=== PATIENT | male | born 1930 | race Caucasian/White ===

== ENCOUNTER 2017-06-02 21:32 | Inpatient (IN) ==
[2017-06-02] MEDS ORDERED: Aspirin 81 MG TAB.CHEW PO STA (21:39)
[2017-06-02] MEDS ORDERED: Azithromycin 500 MG in D5% in Water 250 ML IVPB ONE (21:50)
--- NOTE | 2017-06-02 22:03 | Emergency Department Note ---
Disposition Clinical Impression: Cholecystitis, acute, Acute respiratory distress, Severe sepsis Sepsis Qualifiers: Sepsis type: sepsis due to unspecified organism Qualified Code(s): A41.9 - Sepsis, unspecified organism Bilateral pneumonia Qualifiers: Pneumonia type: due to unspecified organism Lung location: lower lobe of lung Qualified Code(s): J18.9 - Pneumonia, unspecified organism Disposition: Admitted As Inpatient Condition: Serious Time of Disposition: 03:16 SOB HPI - General Chief Complaint: ED Shortness of Breath/Dyspnea Stated Complaint: beto Time Seen by Provider: 06/02/17 21:35 Source: patient, EMS Mode of arrival: EMS Limitations: no limitations Nursing Notes Reviewed: Yes Vital Signs Reviewed: Yes - History of Present Illness 86 year old male transferred from [place] urgent care for severe SOA; several day history of worsening shortness of air and fever. Denies any other symptoms including syncope, lightheadedness, vision change, cough, wheeze, chest pain, palpitations, abdominal pain, nausea, or vomiting. Seen in [place] [facility] prior to arrival during which several studies were done including troponin x2 with upward trend (0.02 to 0.075), elevated BNP at 1329, and negative lactate. WBC and CXR had not resulted before transfer to [place]. Nurse informs me that patient meets sepsis criteria. Hx remarkable for history of UTI, CAD, CHF, COPD, and home O2 dependence ( usually on 2L via NC). ROS: has had increasing leg swelling over several days, however, denies focal weakness/sensory loss, diarrhea, dysuria, or urinary frequency. - Related Data Home Medications Medication Instructions Recorded Confirmed Albuterol Neb [Proventil Neb] 2.5 mg IH Q4H 06/02/17 06/02/17 Albuterol Sulfate [Albuterol 2 puff IH Q6H PRN 06/02/17 06/02/17 Inhaler] Alfuzosin HCl [Uroxatral] 10 mg PO DAILY 06/02/17 06/02/17 Allopurinol [Zyloprim 100 MG] 100 mg PO DAILY 06/02/17 06/02/17 Ascorbic Acid [Vitamin C] 500 mg PO DAILY 06/02/17 06/02/17 Atorvastatin Calcium [Lipitor] 20 mg PO HS 06/02/17 06/02/17 Budesonide/Formoterol 160/4.5 2 puff IH BIDR 06/02/17 06/02/17 [Symbicort 160/4.5] Calcium Carbonate/Vitamin D3 1 each PO DAILY 06/02/17 06/02/17 [Calcium 600-Vit D3 200 Tablet] Carvedilol 3.125 mg PO DAILY 06/02/17 06/02/17 Cyanocobalamin (Vitamin B-12) 1,000 mcg PO DAILY 06/02/17 06/02/17 [Vitamin B12] Ergocalciferol (VITAMIN D2) 800 unit PO DAILY 06/02/17 06/02/17 [Vitamin D] Ferrous Sulfate 325 mg PO TID 06/02/17 06/02/17 FluocinoNIDE 0.05% CRM [Lidex] 1 appl TP BID 06/02/17 06/02/17 Furosemide [Lasix] 60 mg PO BID 06/02/17 06/02/17 Gabapentin [Neurontin] 800 mg PO BID 06/02/17 06/02/17 Hydrocortisone 1% CREAM [Cortaid] 1 appl TP BID 06/02/17 06/02/17 Insulin NPH Human Isophane 30 unit SQ QAM 06/02/17 06/02/17 [Novolin N] Insulin NPH Human Isophane 60 unit SQ HS 06/02/17 06/02/17 [Novolin N] Insulin Regular, Human [Novolin R] 30 unit SQ BID 06/02/17 06/02/17 Ipratropium Neb [Atrovent Neb] 0.5 mg IH QID PRN 06/02/17 06/02/17 Lisinopril 2.5 mg PO Q48H 06/02/17 06/02/17 Omeprazole [PriLOSEC] 20 mg PO BIDAC 06/02/17 06/02/17 Petrolatum,White [Aloe [place]] 1 appl TP DAILY 06/02/17 06/02/17 Potassium Chloride [K-Tab ER] 60 meq PO BID 06/02/17 06/02/17 Pyridoxine (B-6) [Vitamin B-6] 50 mg PO DAILY 06/02/17 06/02/17 Sertraline [Zoloft] 75 mg PO QAM 06/02/17 06/02/17 Spironolactone [Aldactone] 12.5 mg PO BID 06/02/17 06/02/17 Tramadol HCl [Ultram] 50 mg PO Q6H 06/02/17 06/02/17 Vitamin E Acid Succinate [Vitamin 400 units PO DAILY 06/02/17 06/02/17 E] Allergies Allergy/AdvReac Type Severity Reaction Status Date / Time No Known Allergies Allergy Verified 06/02/17 21:35 All systems ED: reviewed and negative except as stated. Review of Systems: As Per HPI Constitutional: Reports: fever, chills, weakness. Denies: night sweats Eyes: Denies: vision change Cardiovascular: Reports: dyspnea on exertion, edema. Denies: chest pain, palpitations, syncope Respiratory: Reports: dyspnea. Denies: cough, wheezes, hemoptysis, stridor, sputum production Gastrointestinal: Denies: abdominal pain, nausea, vomiting, diarrhea Genitourinary: Denies: urgency, dysuria, frequency, hematuria Musculoskeletal: Denies: back pain Neurological: Reports: weakness. Denies: headache, numbness, paresthesias, confusion Psychiatric: Denies: anxiety Endocrine: Reports: fatigue Past Medical History - Past Medical History Attestation: Yes The following information was validated with the patient. Source: patient Medical history: Reports: atrial fibrillation, CHF, COPD, coronary artery disease, diabetes, osteoporosis Psychiatric history: Reports: depression - Social History Smoking Status: Former smoker Alcohol use: Reports: none Drug use: Reports: none Physical Exam - General Limitations: no limitations General appearance: alert, in distress - Head Head exam: normocephalic - Eye Eye exam: Present: PERRL, EOMI. Absent: scleral icterus, conjunctival injection - ENT ENT exam: mucous membranes moist - Respiratory Respiratory exam: Present: respiratory distress, accessory muscle use, other ( Positive rales and rhonchi). Absent: wheezes, stridor - Cardiovascular Cardiovascular exam: Present: normal rhythm, tachycardia. Absent: systolic murmur, diastolic murmur, +S3, +S4 - Abdominal Exam Abdominal exam: Present: soft, Non-Tender. Absent: Cruz's sign - Extremities Exam Extremities exam: Present: pedal edema (3+ pitting edema bilaterally symmetrical with ruborous skin change) Course Course Narrative: Patient placed on BIPAP and bus monitor. Ordered CBC, lactate, blood cultures x2, troponin, and CXR. Started on broad spectrum IV antibiotics. Breathing subjectively improved. RN reports to me that patient is SIRS positive due to elevations in RR, HR, and Temp. Half liter NS bolus given. Troponin 0.06. CXR shows possible pneumonia per radiologist interpretation. Patient did also show intra-abdominal lab abnormalities had known as noted from [place] record including elevated bilirubin (2.8) & elevated transaminases (AST 348, ALT 208). ABG drawn. Decision to admit patient for acute CHF exacerbation with . Spoke with hospitalist who requests an abdominal CT with contrast (due to aforementioned concerning lab abnormalities) prior to floor placement; findings consistent with acute cholecystitis per radiology read. Hospitalist accepts patient requesting general surgery be consulted on case. Also requested GI consult be ordered. - Consultations Consultation #1: Spoke with resident traffic control supervisor for general surgery. Will consult secondary to medicine admission due to bipap-dependent respiratory distress. Time: 03:14 Vital Signs Temperature 101.6 F H 06/02/17 21:35 Pulse Rate 100 06/02/17 21:35 Respiratory Rate 28 06/02/17 21:35 Blood Pressure 198/87 06/02/17 21:35 O2 Sat by Pulse Oximetry 95 06/02/17 21:35 Temperature 98.9 F 06/03/17 04:20 Pulse Rate 86 06/03/17 04:20 Respiratory Rate 30 06/03/17 04:45 Blood Pressure 211/97 06/03/17 04:20 O2 Sat by Pulse Oximetry 96 06/03/17 04:45 Oxygen Delivery Oxygen Delivery Bipap Shortness of Breath/Dyspnea - MDM Narrative Medical decision making narrative: Patient in persistent respiratory distress requiring BiPAP. Meet sepsis criteria with radiographic evidence of acute cholecystitis without visualized cholelithiasis. Admitting to medicine for monitoring, treatment of respiratory status, IV antibiotics, G.I. consult, and general surgery consult. Hospitalist traffic control supervisor accepts patient. GI consult ordered and pending. General surgery consulted on case. U/S GB ordered. Single dose of Cipro and Flagyl given at request of hospitalist. Patient currently on BIPAP saturating well. - Lab Data Lab results reviewed: Yes I reviewed the patient's lab results. Lab results narrative: [facility]: BNP 1329, troponin x2 (0.02, 0.075), CK 86, AST 348, a LT 308, total bilirubin 2.8, direct bilirubin 2.4, alk false 154, calcium 8.7, total protein 8.0, sodium 140, potassium 3.5, chloride 96, CO2 36, glucose 88, dealing 14, creatinine 1.02. Laboratory Last Values WBC 10.0 K/mcL (4.3-11.1) 06/03/17 00:24 RBC 3.71 M/mcL (4.19-5.50) L 06/03/17 00:24 Hgb 11.4 g/dL (12.9-16.9) L 06/03/17 00:24 Hct 36.5 % (37.5-50.1) L 06/03/17 00:24 MCV 98.4 fL (83.0-100.0) 06/03/17 00:24 MCH 30.7 pg (28.0-33.3) 06/03/17 00:24 MCHC 31.2 g/dL (31.6-35.5) L 06/03/17 00:24 RDW 14.7 % (11.5-14.5) H 06/03/17 00:24 Plt Count 159 K/mcL (140-400) 06/03/17 00:24 MPV 9.8 fL (9.4-12.4) 06/03/17 00:24 Immature Gran % 0.4 % (0-4) 06/03/17 00:24 Seg Neutrophils % 89.4 % 06/03/17 00:24 Lymphocytes % 3.3 % 06/03/17 00:24 Monocytes % 6.8 % 06/03/17 00:24 Eosinophils % 0.0 % 06/03/17 00:24 Basophils % 0.1 % 06/03/17 00:24 Neutrophils # 9.0 K/mcL (1.6-8.9) H 06/03/17 00:24 Lymphocytes # 0.3 K/mcL (0.6-4.6) L 06/03/17 00:24 Monocytes # 0.7 K/mcL (0.0-1.3) 06/03/17 00:24 Eosinophils # 0.0 K/mcL (0.0-0.6) 06/03/17 00:24 Basophils # 0.0 K/mcL (0.0-0.2) 06/03/17 00:24 Immature Plt Fraction 2.5 % (1.1-6.1) 06/03/17 00:24 ABG pH 7.37 pH Units (7.32-7.45) 06/02/17 23:52 ABG pCO2 61 mmHg (35-45) H 06/02/17 23:52 ABG pO2 89 mmHg (85-104) 06/02/17 23:52 ABG HCO3 35 mEq/L (21-27) H 06/02/17 23:52 ABG Total CO2 37 mEq/L (20-26) H 06/02/17 23:52 ABG O2 Saturation 96 % (95-98) 06/02/17 23:52 ABG Base Excess 8 mEq/L (-2 to 3) H 06/02/17 23:52 Lactic Acid 1.6 mmol/L (0.5-2.2) 06/02/17 22:56 Troponin I 0.06 ng/mL (0-0.03) H* 06/02/17 22:56 B-Natriuretic Peptide 153 pg/mL (0-100) H 06/02/17 22:56 Urine Color Dark Yellow (Yellow) 06/02/17 23:42 Urine Clarity Slightly Hazy (Clear) 06/02/17 23:42 Urine pH 7.5 pH Units (5.0-8.0) 06/02/17 23:42 Ur Specific [place] 1.016 (1.010-1.025) 06/02/17 23:42 Urine Protein 100 mg/dL (Neg-Trace) H 06/02/17 23:42 Urine Glucose (UA) Normal mg/dL (Normal) 06/02/17 23:42 Urine Ketones 15 mg/dL (Negative) H 06/02/17 23:42 Urine Blood Moderate (Negative) H 06/02/17 23:42 Urine Nitrite Negative (Negative) 06/02/17 23:42 Urine Bilirubin Small (Negative) H 06/02/17 23:42 Urine Urobilinogen 2.0 mg/dL (Normal) H 06/02/17 23:42 Ur Leukocyte Esterase Trace (Negative) H 06/02/17 23:42 Urine Microscopic RBC 15-30 per hpf (0-3) H 06/02/17 23:42 Urine Microscopic WBC 0-3 per hpf (0-3) 06/02/17 23:42 Ur Squamous Epith Cells Many per lpf (None-Few) H 06/02/17 23:42 Urine Bacteria Few per hpf (None-Few) 06/02/17 23:42 Hyaline Casts None Seen per lpf (None-Few) 06/02/17 23:42 Ur Culture Indicated? YES (NO) A 06/02/17 23:42 Result diagrams: 06/03/17 00:24 Lab Results 06/02/17 06/02/17 06/02/17 Range/Units 22:56 22:56 22:56 WBC (4.3-11.1) K/mcL RBC (4.19-5.50) M/mcL Hgb (12.9-16.9) g/dL Hct (37.5-50.1) % MCV (83.0-100.0) fL MCH (28.0-33.3) pg MCHC (31.6-35.5) g/dL RDW (11.5-14.5) % Plt Count (140-400) K/mcL MPV (9.4-12.4) fL Immature Gran % (0-4) % Seg Neutrophils % % Lymphocytes % % Monocytes % % Eosinophils % % Basophils % % Neutrophils # (1.6-8.9) K/mcL Lymphocytes # (0.6-4.6) K/mcL Monocytes # (0.0-1.3) K/mcL Eosinophils # (0.0-0.6) K/mcL Basophils # (0.0-0.2) K/mcL Immature Plt Fraction (1.1-6.1) % ABG pH (7.32-7.45) pH Units ABG pCO2 (35-45) mmHg ABG pO2 (85-104) mmHg ABG HCO3 (21-27) mEq/L ABG Total CO2 (20-26) mEq/L ABG O2 Saturation (95-98) % ABG Base Excess (-2 to 3) mEq/L Lactic Acid 1.6 (0.5-2.2) mmol/L Troponin I 0.06 H* (0-0.03) ng/mL B-Natriuretic Peptide 153 H (0-100) pg/mL Urine Color (Yellow) Urine Clarity (Clear) Urine pH (5.0-8.0) pH Units Ur Specific [place] (1.010-1.025) Urine Protein (Neg-Trace) mg/dL Urine Glucose (UA) (Normal) mg/dL Urine Ketones (Negative) mg/dL Urine Blood (Negative) Urine Nitrite (Negative) Urine Bilirubin (Negative) Urine Urobilinogen (Normal) mg/dL Ur Leukocyte Esterase (Negative) Urine Microscopic RBC (0-3) per hpf Urine Microscopic WBC (0-3) per hpf Ur Squamous Epith Cells (None-Few) per lpf Urine Bacteria (None-Few) per hpf Hyaline Casts (None-Few) per lpf Ur Culture Indicated? (NO) 06/02/17 06/02/17 06/03/17 Range/Units 23:42 23:52 00:24 WBC 10.0 (4.3-11.1) K/mcL RBC 3.71 L (4.19-5.50) M/mcL Hgb 11.4 L (12.9-16.9) g/dL Hct 36.5 L (37.5-50.1) % MCV 98.4 (83.0-100.0) fL MCH 30.7 (28.0-33.3) pg MCHC 31.2 L (31.6-35.5) g/dL RDW 14.7 H (11.5-14.5) % Plt Count 159 (140-400) K/mcL MPV 9.8 (9.4-12.4) fL Immature Gran % 0.4 (0-4) % Seg Neutrophils % 89.4 % Lymphocytes % 3.3 % Monocytes % 6.8 % Eosinophils % 0.0 % Basophils % 0.1 % Neutrophils # 9.0 H (1.6-8.9) K/mcL Lymphocytes # 0.3 L (0.6-4.6) K/mcL Monocytes # 0.7 (0.0-1.3) K/mcL Eosinophils # 0.0 (0.0-0.6) K/mcL Basophils # 0.0 (0.0-0.2) K/mcL Immature Plt Fraction 2.5 (1.1-6.1) % ABG pH 7.37 (7.32-7.45) pH Units ABG pCO2 61 H (35-45) mmHg ABG pO2 89 (85-104) mmHg ABG HCO3 35 H (21-27) mEq/L ABG Total CO2 37 H (20-26) mEq/L ABG O2 Saturation 96 (95-98) % ABG Base Excess 8 H (-2 to 3) mEq/L Lactic Acid (0.5-2.2) mmol/L Troponin I (0-0.03) ng/mL B-Natriuretic Peptide (0-100) pg/mL Urine Color Dark Yellow (Yellow) Urine Clarity Slightly Hazy (Clear) Urine pH 7.5 (5.0-8.0) pH Units Ur Specific [place] 1.016 (1.010-1.025) Urine Protein 100 H (Neg-Trace) mg/dL Urine Glucose (UA) Normal (Normal) mg/dL Urine Ketones 15 H (Negative) mg/dL Urine Blood Moderate H (Negative) Urine Nitrite Negative (Negative) Urine Bilirubin Small H (Negative) Urine Urobilinogen 2.0 H (Normal) mg/dL Ur Leukocyte Esterase Trace H (Negative) Urine Microscopic RBC 15-30 H (0-3) per hpf Urine Microscopic WBC 0-3 (0-3) per hpf Ur Squamous Epith Cells Many H (None-Few) per lpf Urine Bacteria Few (None-Few) per hpf Hyaline Casts None Seen (None-Few) per lpf Ur Culture Indicated? YES A (NO) - Radiology Data Radiology results reviewed: Yes I reviewed the patient's radiology results. Chest X-Ray 06/02/17 21:36 IMPRESSION: Stable mild cardiomegaly. Mild bibasilar airspace disease may represent pneumonia and/or atelectasis. D/ / Sunday Pulido MD / Sunday Pulido MD Interpreting Provider: Sunday Pulido MD Abdomen/Pelvis CT 06/03/17 01:03 IMPRESSION: Gallbladder wall thickening with pericholecystic fat stranding suspicious for mild acute cholecystitis. There are no calcified gallstones. Correlation with gallbladder ultrasound may be helpful. Right greater than left bibasilar airspace disease most consistent with pneumonia. Atelectasis may be contributory. 2.1 cm right adrenal gland nodule, likely an adenoma. Soft tissue nodules with foci of calcification posterior to the sacrococcygeal junction. These may be reactive and pressure related. Clinical correlation is recommended. D/ / Sunday Pulido MD / Sunday Pulido MD Interpreting Provider: Sunday Pulido MD - EKG Data EKG attestation: Yes I reviewed and interpreted this EKG. EKG results narrative: Rate 94, P-waves indiscernable, TX interval indeterminate, QRS duration 186, QTC 466, R axis -69, RBBB, no acutely appreciable ST changes Critical Care Time Critical Care Time: Yes Total Critical Care Time: 40 Attestation: Critical care performed: Time is exclusive of separately billable procedures. Time includes: direct patient care, patient reassessment, coordination of patient care, interpretation of data (laboratory data, radiology data, and respiratory data), review of patient's medical records, medical consultation and documentation of patient care. Procedures included in critical care time: Procedures excluded from critical care time: Attestation Statement - Attestation Attestation: I, [place] MD, personally evaluated this patient and discussed their management with the resident physician. I reviewed the resident's note and agree with the documented findings, medical decision making, and plan of care. 86-year-old [facility] complaint of cough and shortness of breath and fever. Patient evaluated at the [place] and found to have an elevated troponin. He denies chest pain. He states he has just had increasing shortness of breath for the past 4 or 5 days. Some cough with clear sputum occasionally. Some chills and fever. He does use home oxygen. On examination patient is a well-developed obese elderly male in mild respiratory distress. He is alert. There is no cyanosis or diaphoresis. Breath sounds are decreased bilaterally with some bibasilar rales. No wheezes noted. Heart regular rate and rhythm. Abdomen soft and nontender with normal bowel sounds. There is 2-3+ pitting edema of the lower extremities bilaterally. Patient placed on BiPAP. Labs reviewed. Troponin 0.06 here. Chest x-ray shows stable mild cardiomegaly. Mild bibasilar airspace disease may represent pneumonia and/or atelectasis. The hospitalist, Dr. Phoenix, was consulted and requested a CT of the abdomen and pelvis prior to accepting patient for admission. We will call him back with the results. CT showed gallbladder wall thickening with pericholecystic fat stranding suspicious for mild acute cholecystitis. There are no calcified gallstones. Right greater than left bibasilar airspace disease most consistent with pneumonia.
[2017-06-02] MEDS ORDERED: 0.9 % Sodium Chloride 500 ML IVC ONE (23:26)
[2017-06-02 23:57] LABS: ABG Base Excess 8 mEq/L (-2 to 3); ABG HCO3 35 mEq/L (21-27); ABG Oxygen Saturation 96 % (95-98); ABG PCO2 61 mmHg (35-45); ABG PH 7.37 pH Units (7.32-7.45); ABG PO2 89 mmHg (85-104); ABG TCO2 37 mEq/L (20-26)
[2017-06-03 00:04] LABS: Bilirubin,Urine Small (Negative); Blood,Urine Moderate (Negative); Color,Urine Dark Yellow (Yellow); Glucose,Urine (UA) Normal (Normal); Ketones,Urine 15 mg/dL (Negative); Leukocyte Esterase,Urine Trace (Negative); Nitrite,Urine Negative (Negative); PH,Urine 7.5 pH Units (5.0-8.0); Protein,Urine 100 mg/dL (Neg-Trace); Specific Gravity,Urine 1.016 (1.010-1.025)
[2017-06-03 00:06] LABS: Hyaline Casts,Urine None Seen per lpf (None-Few); Squamous Epithelial Cell,Urine Many per lpf (None-Few); WBC,Urine 0-3 per hpf (0-3)
[2017-06-03 00:09] LABS: Clarity,Urine Slightly Hazy (Clear)
[2017-06-03 00:22] LABS: Bacteria,Urine Few per hpf (None-Few); RBC,Urine 15-30 per hpf (0-3)
[2017-06-03 00:32] LABS: Basophils % 0.1 %; Hematocrit 36.5 % (37.5-50.1); Hemoglobin 11.4 g/dL (12.9-16.9); Immature Granulocytes % 0.4 % (0-4); Immature Platelets 2.5 % (1.1-6.1); Lymphocytes # 0.3 K/mcL (0.6-4.6); Lymphocytes % 3.3 %; Mean Corpuscular HGB Conc 31.2 g/dL (31.6-35.5); Mean Corpuscular Hemoglobin 30.7 pg (28.0-33.3); Mean Corpuscular Volume 98.4 fL (83.0-100.0); Mean Platelet Volume 9.8 fL (9.4-12.4); Monocytes # 0.7 K/mcL (0.0-1.3); Monocytes % 6.8 %; Platelet Count 159 K/mcL (140-400); Red Blood Count 3.71 M/mcL (4.19-5.50); Red Cell Distribution Width 14.7 % (11.5-14.5); Segmented Neutrophils % 89.4 %
[2017-06-03] MEDS ORDERED: Ipratropium/Albuterol Neb 3 ML IH ONE (01:41)
[2017-06-03] MEDS ORDERED: MetroNIDAZOLE 500 MG/100 ML 500 MG/100 ML BAG IVPB ONE (03:23)
[2017-06-03] MEDS ORDERED: *HR* Labetalol 20 MG/4 ML SYRINGE IVP PRN (06:27)
[2017-06-03 09:12] LABS: Albumin 3.2 g/dL (3.5-5.0); Albumin/Globulin Ratio 0.8 (1.1-2.2); Bilirubin,Direct 3.5 mg/dL (0.0-0.5); Bilirubin,Indirect 0.9 mg/dL (0.0-1.2); Bilirubin,Total 4.4 mg/dL (0.2-1.2); Total Protein 7.2 g/dL (6.0-8.3)
--- NOTE | 2017-06-03 11:14 | Internal Med History&Physical ---
Date of Encounter: 06/03/17 Time of Encounter: 11:02 Assessment and Plan (1) Acute exacerbation of congestive heart failure Current visit: Yes Status: Acute IV Lasix. Echocardiogram. Strict I's and O's. Daily weights. Echocardiogram from July 2016 reviewed in the medical records with ejection fraction of 55% and diastolic dysfunction. Qualifiers: Congestive heart failure type: systolic Qualified Code(s): I50.23 - Acute on chronic systolic (congestive) heart failure (2) Sepsis Current visit: Yes Status: Acute Likely source pneumonia. We will treat him with Zosyn and Levaquin possible there is also suggestion of cholecystitis. Follow-up blood cultures, temperature curve, WBC trend. I will avoid 30 a mile per KG fluid resuscitation due to acute heart failure and fluid overload. Qualifiers: Sepsis type: sepsis due to unspecified organism Qualified Code(s): A41.9 - Sepsis, unspecified organism (3) Cholecystitis, acute Current visit: Yes Status: Acute Gallbladder ultrasound. General surgery consult. (4) Acute respiratory distress Current visit: Yes Status: Acute Secondary to fluid overload, pneumonia superimposed with chronic lung disease We will treat with Lasix, BiPAP. We will treat pneumonia with IV antibiotics. Inhaled bronchodilators. (5) Bilateral pneumonia Current visit: Yes Status: Acute Zosyn and Levaquin. Follow-up blood cultures and sensitivity. Obtain sputum culture if available. Qualifiers: Pneumonia type: due to unspecified organism Lung location: lower lobe of lung Qualified Code(s): J18.9 - Pneumonia, unspecified organism (6) Coronary artery disease Current visit: Yes Status: Acute Continue with Coreg and Lipitor. Qualifiers: Coronary Disease-Associated Artery/Lesion type: picayune artery [place] vs. transplanted heart: picayune heart Associated angina: without angina Qualified Code(s): I25.10 - Atherosclerotic heart disease of picayune coronary artery without angina pectoris (7) Type 2 diabetes mellitus Current visit: Yes Status: Acute Insulin sliding scale and Levemir basal coverage. Qualifiers: Diabetes mellitus complication status: without complication Diabetes mellitus halfway insulin use: with long term care pharmacist use Qualified Code(s): E11.9 - Type 2 diabetes mellitus without complications; Z79.4 - halfway (current) use of insulin; Z79.4 - long term care pharmacist (current) use of insulin; Z79.4 - halfway ( current) use of insulin; Z79.4 - halfway (current) use of insulin Internal Medicine - H&P: HPI Chief complaint: Shortness of breath Admitted From: Emergency Dept Plans for Post Hospital Care: Home History of present illness: Mr. Lagos is a 86 year old male with multiple medical comorbidities who presented to the hospital due to shortness of breath. He is a very poor historian. He initially presented at the [facility] where his workup showed elevated BNP and mildly elevated troponin and he was transferred to our facility. He reports moderate distress severe shortness of breath worsening over the last 2 days, denies chest pain cough and fever. He was found to have increased work of breathing in the emergency department and he was placed on BiPAP. Review of systems positive for chronic lower extremity swelling, chronic hip pain, knee pain, shortness of breath. Family history was reviewed and found to be noncontributory due to the patient' s advanced age. Past Med Surg Social Fam HX - Past Medical History Medical history: atrial fibrillation, CHF, COPD, coronary artery disease, diabetes, osteoporosis Psychiatric history: depression - Social History Smoking Status: Former smoker Smokeless Tobacco Status: No Alcohol use: none Drug use: none Internal Medicine - H&P: Meds Albuterol Neb [Proventil Neb] 2.5 mg IH Q4H 06/02/17 [History] Albuterol Sulfate [Albuterol Inhaler] 2 puff IH Q6H PRN 06/02/17 [History] Alfuzosin HCl [Uroxatral] 10 mg PO DAILY 06/02/17 [History] Allopurinol [Zyloprim 100 MG] 100 mg PO DAILY 06/02/17 [History] Ascorbic Acid [Vitamin C] 500 mg PO DAILY 06/02/17 [History] Atorvastatin Calcium [Lipitor] 20 mg PO HS 06/02/17 [History] Budesonide/Formoterol 160/4.5 [Symbicort 160/4.5] 2 puff IH BIDR 06/02/17 [ History] Calcium Carbonate/Vitamin D3 [Calcium 600-Vit D3 200 Tablet] 1 each PO DAILY [History] Carvedilol 3.125 mg PO DAILY 06/02/17 [History] Cyanocobalamin (Vitamin B-12) [Vitamin B12] 1,000 mcg PO DAILY 06/02/17 [History ] Ergocalciferol (VITAMIN D2) [Vitamin D] 800 unit PO DAILY 06/02/17 [History] Ferrous Sulfate 325 mg PO TID 06/02/17 [History] FluocinoNIDE 0.05% CRM [Lidex] 1 appl TP BID 06/02/17 [History] Furosemide [Lasix] 60 mg PO BID 06/02/17 [History] Gabapentin [Neurontin] 800 mg PO BID 06/02/17 [History] Hydrocortisone 1% CREAM [Cortaid] 1 appl TP BID 06/02/17 [History] Insulin NPH Human Isophane [Novolin N] 30 unit SQ QAM 06/02/17 [History] Insulin NPH Human Isophane [Novolin N] 60 unit SQ HS 06/02/17 [History] Insulin Regular, Human [Novolin R] 30 unit SQ BID 06/02/17 [History] Ipratropium Neb [Atrovent Neb] 0.5 mg IH QID PRN 06/02/17 [History] Lisinopril 2.5 mg PO Q48H 06/02/17 [History] Omeprazole [PriLOSEC] 20 mg PO BIDAC 06/02/17 [History] Petrolatum,White [Aloe [place]] 1 appl TP DAILY 06/02/17 [History] Potassium Chloride [K-Tab ER] 60 meq PO BID 06/02/17 [History] Pyridoxine (B-6) [Vitamin B-6] 50 mg PO DAILY 06/02/17 [History] Sertraline [Zoloft] 75 mg PO QAM 06/02/17 [History] Spironolactone [Aldactone] 12.5 mg PO BID 06/02/17 [History] Tramadol HCl [Ultram] 50 mg PO Q6H 06/02/17 [History] Vitamin E Acid Succinate [Vitamin E] 400 units PO DAILY 06/02/17 [History] 3 Allergy/AdvReac Type Severity Reaction Status Date / Time No Known Allergies Allergy Verified 06/02/17 21:35 All Systems PM: A 10-system review of systems was performed and is negative for pertinent findings except as documented above in the HPI. - Constitutional Vitals: Temp Pulse Resp BP Pulse Ox 98.6 F 97 27 173/72 96 06/03/17 07:30 06/03/17 07:30 06/03/17 07:30 06/03/17 07:30 06/03/17 04:45 General appearance: Present: A&O X 3, morbidly obese, no acute distress - Eye Eye exam: Present: PERRL, conjuntiva pink, sclera anicteric Pupils: Present: PERRL - Respiratory Respiratory exam: Present: decreased breath sounds (Decreased breath sounds bases), CTAB. Absent: accessory muscle use, rales, rhonchi, wheezes - Cardiovascular Cardiovascular exam: Present: RRR, +S1, +S2. Absent: diastolic murmur, gallop, rubs, systolic murmur Additional comments: Post sternotomy scar - GI/Abdominal GI/Abdominal exam: Present: normal bowel sounds, soft, no peritoneal signs. Absent: distended, tenderness - Extremities Exam Extremities exam: Present: pedal edema, warm, radial pulses palpable and symmetrical. Absent: calf tenderness, cyanotic - Skin Skin exam: Present: abrasion (Superficial skin abrasions on both shins) Internal Med - H&P Results - Labs CBC & Chem 7: 06/03/17 00:24 Labs: Liver Function 06/03/17 Range/Units 07:50 Total Bilirubin 4.4 H (0.2-1.2) mg/dL Direct Bilirubin 3.5 H (0.0-0.5) mg/dL AST 195 H (5-34) Units/L ALT 216 H (0-55) Units/L Alkaline Phosphatase 144 H (38-126) Units/L Albumin 3.2 L (3.5-5.0) g/dL
[2017-06-03] MEDS ORDERED: Acetaminophen 325 MG TABLET PO PRN (11:34)
[2017-06-03] MEDS ORDERED: Ondansetron 4 MG/2 ML VIAL IVP PRN (11:34)
[2017-06-03] MEDS ORDERED: *HR* Morphine 2 MG/ML SYRINGE IVP PRN (11:34)
[2017-06-03] MEDS ORDERED: *HR* HYDROcodone/Acet 5/325 mg TABLET PO PRN (11:34)
[2017-06-03] MEDS ORDERED: Naloxone 0.4 MG/ML INJ IVP PRN (11:34)
[2017-06-03 11:40] LABS: BUN/Creatinine Ratio 16 (6-26); Blood Urea Nitrogen 14 mg/dL (8-26); Carbon Dioxide 33 mEq/L (19-29); Chloride 97 mEq/L (98-109); Glucose 161 mg/dL (70-99); Osmolality,Calculated 294 (280-300); Potassium 3.6 mEq/L (3.5-4.5); Sodium 140 mEq/L (136-145); eGFR For African Americans > 60 (> 60); eGFR For Non-African Americans > 60 (> 60)
[2017-06-03] MEDS: Furosemide 40 MG/4 ML VIAL IVP SCH ×2 (13:02→22:33)
[2017-06-03] MEDS: traMADol 50 MG TABLET PO SCH ×3 (13:02→22:36)
[2017-06-03] MEDS: Piperacillin/Tazobactam 3.375 GM in D5% in Water (Mini-Bag+) 100 ML IVPB SCH (15:37)
[2017-06-03] MEDS: Ipratropium/Albuterol Neb 3 ML IH SCH ×4 (16:16→22:55)
--- NOTE | 2017-06-03 17:28 | General Surgery Consult Note ---
Date of Encounter: 06/03/17 Time of Encounter: 17:00 History of Present Illness Consult date: 06/03/17 Requesting physician: Chemo Mederos History of present illness: 86-year-old referred for surgical evaluation for possible acute cholecystitis. The patient transferred to [facility], 06/02/17, from the [facility] for further evaluation severe shortness of air and difficulty breathing. Evaluation was notable for several findings including upward trending troponin, elevated BNP and CT demonstrating diffuse thickening of the gallbladder wall with possible mild pericholecystic fluid. These findings were suggestive of acute cholecystitis prompting the surgical referral. No gallstones were evident. On subsequent USGB, only mild gallbladder wall thickening measuring up to 6 mm as described. No pericholecystic fluid or cholelithiasis was identified. The sonographic Cruz sign was negative. 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 It appears that he may have superimposed pneumonia on chronic lung disease. Labs notable for normal leukocytosis at 10.0; elevated neutrophilia at 9%. Hemoglobin 11.4, hematocrit 35.7, platelet count 159,000. Blood gases notable for significant CO2 retention - pH 7.37, PCO2 61, PO2 89 , bicarbonate 35, base excess 8, O2 saturation 96% Electrolytes, BUN, creatinine or within normal limits; lactic acid 1.6 Total bilirubin 4.4 with a direct component 3.5; AST 135, ALT 216, alkaline phosphatase 144 CT and US reviewed Impression: No evidence acute cholecystitis The abnormal LFTs suggestive CHF/right heart failure causing significant hepatic congestion. Should consider hepatitis as a potential cause for the current findings. The patient remains in significant respiratory distress; if surgery were to be considered, high likelihood that patient will remain intubated an require prolonged mechanical ventilation Findings and impressions discussed with Dr Mederos Past Med Surg Social Fam HX - Past Medical History Medical history: atrial fibrillation, CHF, COPD, coronary artery disease, diabetes, osteoporosis Psychiatric history: depression - Social History Smoking Status: Former smoker Smokeless Tobacco Status: No Alcohol use: none Drug use: none Medications and Allergies Albuterol Neb [Proventil Neb] 2.5 mg IH Q4H 06/02/17 [History] Albuterol Sulfate [Albuterol Inhaler] 2 puff IH Q6H PRN 06/02/17 [History] Alfuzosin HCl [Uroxatral] 10 mg PO DAILY 06/02/17 [History] Allopurinol [Zyloprim 100 MG] 100 mg PO DAILY 06/02/17 [History] Ascorbic Acid [Vitamin C] 500 mg PO DAILY 06/02/17 [History] Atorvastatin Calcium [Lipitor] 20 mg PO HS 06/02/17 [History] Budesonide/Formoterol 160/4.5 [Symbicort 160/4.5] 2 puff IH BIDR 06/02/17 [ History] Calcium Carbonate/Vitamin D3 [Calcium 600-Vit D3 200 Tablet] 1 each PO DAILY [History] Carvedilol 3.125 mg PO DAILY 06/02/17 [History] Cyanocobalamin (Vitamin B-12) [Vitamin B12] 1,000 mcg PO DAILY 06/02/17 [History ] Ergocalciferol (VITAMIN D2) [Vitamin D] 800 unit PO DAILY 06/02/17 [History] Ferrous Sulfate 325 mg PO TID 06/02/17 [History] FluocinoNIDE 0.05% CRM [Lidex] 1 appl TP BID 06/02/17 [History] Furosemide [Lasix] 60 mg PO BID 06/02/17 [History] Gabapentin [Neurontin] 800 mg PO BID 06/02/17 [History] Hydrocortisone 1% CREAM [Cortaid] 1 appl TP BID 06/02/17 [History] Insulin NPH Human Isophane [Novolin N] 30 unit SQ QAM 06/02/17 [History] Insulin NPH Human Isophane [Novolin N] 60 unit SQ HS 06/02/17 [History] Insulin Regular, Human [Novolin R] 30 unit SQ BID 06/02/17 [History] Ipratropium Neb [Atrovent Neb] 0.5 mg IH QID PRN 06/02/17 [History] Lisinopril 2.5 mg PO Q48H 06/02/17 [History] Omeprazole [PriLOSEC] 20 mg PO BIDAC 06/02/17 [History] Petrolatum,White [Aloe [place]] 1 appl TP DAILY 06/02/17 [History] Potassium Chloride [K-Tab ER] 60 meq PO BID 06/02/17 [History] Pyridoxine (B-6) [Vitamin B-6] 50 mg PO DAILY 06/02/17 [History] Sertraline [Zoloft] 75 mg PO QAM 06/02/17 [History] Spironolactone [Aldactone] 12.5 mg PO BID 06/02/17 [History] Tramadol HCl [Ultram] 50 mg PO Q6H 06/02/17 [History] Vitamin E Acid Succinate [Vitamin E] 400 units PO DAILY 06/02/17 [History] 3 Allergy/AdvReac Type Severity Reaction Status Date / Time No Known Allergies Allergy Verified 06/02/17 21:35 Review of Systems All systems PM: A 10-system review of systems was performed and is negative for pertinent findings except as documented above in the HPI. General Surgery Exam Initial Vital Signs Temp Pulse Resp BP Pulse Ox 101.6 F H 100 28 198/87 95 06/02/17 21:35 06/02/17 21:35 06/02/17 21:35 06/02/17 21:35 06/02/17 21:35 Exam Initial Vital Signs Temp Pulse Resp BP Pulse Ox 101.6 F H 100 28 198/87 95 06/02/17 21:35 06/02/17 21:35 06/02/17 21:35 06/02/17 21:35 06/02/17 21:35 Results - Labs 06/03/17 00:24 06/03/17 07:50 Abnormal lab results RBC 3.71 M/mcL (4.19-5.50) L 06/03/17 00:24 Hgb 11.4 g/dL (12.9-16.9) L 06/03/17 00:24 Hct 36.5 % (37.5-50.1) L 06/03/17 00:24 MCHC 31.2 g/dL (31.6-35.5) L 06/03/17 00:24 RDW 14.7 % (11.5-14.5) H 06/03/17 00:24 Neutrophils # 9.0 K/mcL (1.6-8.9) H 06/03/17 00:24 Lymphocytes # 0.3 K/mcL (0.6-4.6) L 06/03/17 00:24 ABG pCO2 61 mmHg (35-45) H 06/02/17 23:52 ABG HCO3 35 mEq/L (21-27) H 06/02/17 23:52 ABG Total CO2 37 mEq/L (20-26) H 06/02/17 23:52 ABG Base Excess 8 mEq/L (-2 to 3) H 06/02/17 23:52 Chloride 97 mEq/L (98-109) L 06/03/17 07:50 Carbon Dioxide 33 mEq/L (19-29) H 06/03/17 07:50 Glucose 161 mg/dL (70-99) H 06/03/17 07:50 POC Glucose 138 (58-89) H 06/03/17 05:08 Total Bilirubin 4.4 mg/dL (0.2-1.2) H 06/03/17 07:50 Direct Bilirubin 3.5 mg/dL (0.0-0.5) H 06/03/17 07:50 AST 195 Units/L (5-34) H 06/03/17 07:50 ALT 216 Units/L (0-55) H 06/03/17 07:50 Alkaline Phosphatase 144 Units/L (38-126) H 06/03/17 07:50 Troponin I 0.07 ng/mL (0-0.03) H* 06/03/17 11:28 B-Natriuretic Peptide 153 pg/mL (0-100) H 06/02/17 22:56 Albumin 3.2 g/dL (3.5-5.0) L 06/03/17 07:50 Globulin 4.0 g/dL (2.4-3.5) H 06/03/17 07:50 Albumin/Globulin Ratio 0.8 (1.1-2.2) L 06/03/17 07:50 Urine Protein 100 mg/dL (Neg-Trace) H 06/02/17 23:42 Urine Ketones 15 mg/dL (Negative) H 06/02/17 23:42 Urine Blood Moderate (Negative) H 06/02/17 23:42 Urine Bilirubin Small (Negative) H 06/02/17 23:42 Urine Urobilinogen 2.0 mg/dL (Normal) H 06/02/17 23:42 Ur Leukocyte Esterase Trace (Negative) H 06/02/17 23:42 Urine Microscopic RBC 15-30 per hpf (0-3) H 06/02/17 23:42 Ur Squamous Epith Cells Many per lpf (None-Few) H 06/02/17 23:42 Ur Culture Indicated? YES (NO) A 06/02/17 23:42 All other labs normal. Consult Discharge Plan - Plan [facility]: [facility] [Primary Care Provider] -
[2017-06-03] MEDS: *HR* Heparin 5,000 UNIT/ML VIAL SQ SCH (17:49)
[2017-06-03] MEDS ORDERED: D5% in Water 1,000 ML IVC PRN (17:54)
[2017-06-03] MEDS ORDERED: *HR* Dextrose 50 % in Water (Syg) 50 ML SYRINGE IVP PRN (17:54)
[2017-06-03] MEDS ORDERED: Dextrose Gel 15 GM PO PRN ×2 (17:54)
[2017-06-03] MEDS: Insulin LISPRO 300 UNITS/3 ML VIAL SQ SCH ×2 (18:23→22:38)
[2017-06-03] MEDS: Budesonide/Formoterol 160/4.5 MDI IH SCH (20:37)
[2017-06-03] MEDS: Gabapentin 400 MG CAPSULE PO SCH (22:36)
[2017-06-03] MEDS: Insulin DETEMIR 100 UNIT/ML X5UNITS SQ SCH (22:37)
[2017-06-04] MEDS: Piperacillin/Tazobactam 3.375 GM in D5% in Water (Mini-Bag+) 100 ML IVPB SCH ×4 (00:40→23:12)
[2017-06-04] MEDS: Ipratropium/Albuterol Neb 3 ML IH SCH ×6 (03:55→23:22)
[2017-06-04 05:34] LABS: Basophils % 0.4 %; Eosinophils # 0.2 K/mcL (0.0-0.6); Eosinophils % 2.5 %; Hemoglobin 11.8 g/dL (12.9-16.9); Immature Granulocytes % 0.3 % (0-4); Lymphocytes # 0.5 K/mcL (0.6-4.6); Lymphocytes % 7.2 %; Mean Corpuscular HGB Conc 31.1 g/dL (31.6-35.5); Mean Corpuscular Volume 96.7 fL (83.0-100.0); Mean Platelet Volume 10.3 fL (9.4-12.4); Monocytes # 0.9 K/mcL (0.0-1.3); Monocytes % 11.5 %; Neutrophils # 5.9 K/mcL (1.6-8.9); Platelet Count 145 K/mcL (140-400); Red Blood Count 3.93 M/mcL (4.19-5.50); Red Cell Distribution Width 14.6 % (11.5-14.5); Segmented Neutrophils % 78.1 %
[2017-06-04 05:46] LABS: Alanine Aminotransferase 164 Units/L (0-55); Albumin/Globulin Ratio 0.8 (1.1-2.2); Alkaline Phosphatase 128 Units/L (38-126); Aspartate Amino Transferase 119 Units/L (5-34); BUN/Creatinine Ratio 19 (6-26); Bilirubin,Total 2.6 mg/dL (0.2-1.2); Blood Urea Nitrogen 16 mg/dL (8-26); Calcium 8.7 mg/dL (8.6-10.8); Carbon Dioxide 37 mEq/L (19-29); Chloride 96 mEq/L (98-109); Globulin 3.9 g/dL (2.4-3.5); Glucose 132 mg/dL (70-99); Osmolality,Calculated 299 (280-300); Potassium 2.9 mEq/L (3.5-4.5); Sodium 143 mEq/L (136-145); Total Protein 6.9 g/dL (6.0-8.3); eGFR For African Americans > 60 (> 60); eGFR For Non-African Americans > 60 (> 60)
[2017-06-04] MEDS: *HR* Heparin 5,000 UNIT/ML VIAL SQ SCH ×2 (06:13→17:14)
[2017-06-04] MEDS: traMADol 50 MG TABLET PO SCH ×4 (06:13→23:11)
[2017-06-04] MEDS: Insulin DETEMIR 100 UNIT/ML X5UNITS SQ SCH ×2 (09:30→21:43)
[2017-06-04] MEDS: Levofloxacin 750 MG/150 ML 750 MG/150 ML BAG IVPB SCH (09:57)
[2017-06-04] MEDS: Furosemide 40 MG/4 ML VIAL IVP SCH ×2 (09:57→21:43)
[2017-06-04] MEDS: Gabapentin 400 MG CAPSULE PO SCH ×2 (09:58→21:43)
[2017-06-04] MEDS: Insulin LISPRO 300 UNITS/3 ML VIAL SQ SCH ×7 (10:03→21:44)
[2017-06-04] MEDS: Budesonide/Formoterol 160/4.5 MDI IH SCH ×2 (10:17→20:50)
--- NOTE | 2017-06-04 12:00 | Electrocardiograph Report ---
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
[2017-06-04] MEDS ORDERED: Perflutren Lipid Microsphere 1.3 ML in 0.9 % Sodium Chloride 8.7 ML IVP ONE (12:42)
--- NOTE | 2017-06-04 14:49 | Internal Med Progress Note ---
Date of Encounter: 06/04/17 Time of Encounter: 14:47 - Assessment and plan (1) Acute exacerbation of congestive heart failure Current Visit: Yes Status: Acute Assessment and plan: Continue Lasix 60 mg IV twice a day, strict I's and O's, daily weights. Is currently -2790 mL since admission. Qualifiers: Congestive heart failure type: systolic Qualified Code(s): I50.23 - Acute on chronic systolic (congestive) heart failure (2) Sepsis Current Visit: Yes Status: Acute Assessment and plan: Zosyn and Levaquin Qualifiers: Sepsis type: sepsis due to unspecified organism Qualified Code(s): A41.9 - Sepsis, unspecified organism (3) Coronary artery disease Current Visit: Yes Status: Acute Qualifiers: Coronary Disease-Associated Artery/Lesion type: [place] artery [place] vs. transplanted heart: [place] heart Associated angina: without angina Qualified Code(s): I25.10 - Atherosclerotic heart disease of [place] coronary artery without angina pectoris (4) Thickening of wall of gallbladder Current Visit: Yes Status: Acute Assessment and plan: Though thickening of GBW, was determined to not be acute cholecystitis. Suggests that pneumonia most likely source of sepsis. We will gear treatment more towards pneumonia at this point. (5) Type 2 diabetes mellitus Current Visit: Yes Status: Acute Assessment and plan: Levemir sliding scale. 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 - Subjective Interval history: Patient denies any dyspnea at this point. He denies CP, N/V, abdominal pain, diarrhea, fevers/chills. He complains of left leg weakness and "giving out". - Constitutional Vitals: Temp Pulse Resp BP Pulse Ox 98.3 F 67 18 100/57 92 06/04/17 11:31 06/04/17 11:31 06/04/17 11:31 06/04/17 11:31 06/04/17 11:31 General appearance: Present: A&O X 3, morbidly obese, no acute distress Exam: - Eye Eye exam: Present: PERRL, conjuntiva pink, sclera anicteric Pupils: Present: PERRL - Respiratory Respiratory exam: Present: decreased breath sounds (Decreased breath sounds bases), CTAB. Absent: accessory muscle use, rales, rhonchi, wheezes - Cardiovascular Cardiovascular exam: Present: RRR, +S1, +S2. Absent: diastolic murmur, gallop, rubs, systolic murmur Additional comments: Post sternotomy scar - GI/Abdominal GI/Abdominal exam: Present: normal bowel sounds, soft, no peritoneal signs. Absent: distended, tenderness - Extremities Exam Extremities exam: Present: pedal edema, warm, radial pulses palpable and symmetrical. Absent: calf tenderness, cyanotic Left lower leg strength is 4+ Right lower leg strength is 4+ - Skin Skin exam: Present: abrasion (Superficial skin abrasions on both shins) Internal Medicine: Result - Labs CBC & Chem 7: 06/04/17 04:11 06/04/17 04:11 Labs: Short CBC 06/04/17 Range/Units 04:11 WBC 7.5 (4.3-11.1) K/mcL Hgb 11.8 L (12.9-16.9) g/dL Hct 38.0 (37.5-50.1) % Plt Count 145 (140-400) K/mcL Neutrophils # 5.9 (1.6-8.9) K/mcL BMP 06/04/17 04:11 Sodium 143 Potassium 2.9 L Chloride 96 L Carbon Dioxide 37 H BUN 16 Creatinine 0.83 Glucose 132 H Calcium 8.7 Cardiac Enzymes 06/03/17 06/04/17 Range/Units 17:38 09:55 Troponin I 0.15 H* 0.09 H* (0-0.03) ng/mL Liver Function 06/04/17 Range/Units 04:11 Total Bilirubin 2.6 H (0.2-1.2) mg/dL AST 119 H (5-34) Units/L ALT 164 H (0-55) Units/L Alkaline Phosphatase 128 H (38-126) Units/L Albumin 3.0 L (3.5-5.0) g/dL - ABG Interpretation ABG results: ABG ABG pH 7.37 pH Units (7.32-7.45) 06/02/17 23:52 ABG pCO2 61 mmHg (35-45) H 06/02/17 23:52 ABG pO2 89 mmHg (85-104) 06/02/17 23:52 ABG O2 Saturation 96 % (95-98) 06/02/17 23:52 Consult Discharge Plan - Plan [facility]errals: [facility] [Primary Care Provider] -
[2017-06-05] MEDS: Ipratropium/Albuterol Neb 3 ML IH SCH ×6 (03:39→23:33)
[2017-06-05 04:35] LABS: Basophils % 0.5 %; Eosinophils # 0.4 K/mcL (0.0-0.6); Eosinophils % 7.4 %; Hemoglobin 11.6 g/dL (12.9-16.9); Immature Granulocytes % 0.5 % (0-4); Lymphocytes # 0.7 K/mcL (0.6-4.6); Lymphocytes % 12.2 %; Mean Corpuscular HGB Conc 31.4 g/dL (31.6-35.5); Mean Corpuscular Hemoglobin 30.8 pg (28.0-33.3); Mean Corpuscular Volume 98.1 fL (83.0-100.0); Mean Platelet Volume 9.7 fL (9.4-12.4); Monocytes # 0.9 K/mcL (0.0-1.3); Monocytes % 14.7 %; Neutrophils # 3.8 K/mcL (1.6-8.9); Platelet Count 136 K/mcL (140-400); Red Blood Count 3.77 M/mcL (4.19-5.50); Red Cell Distribution Width 14.7 % (11.5-14.5); Segmented Neutrophils % 64.7 %
[2017-06-05 04:56] LABS: BUN/Creatinine Ratio 24 (6-26); Blood Urea Nitrogen 23 mg/dL (8-26); Calcium 8.6 mg/dL (8.6-10.8); Carbon Dioxide 38 mEq/L (19-29); Chloride 97 mEq/L (98-109); Glucose 134 mg/dL (70-99); Osmolality,Calculated 300 (280-300); Potassium 3.1 mEq/L (3.5-4.5); Sodium 142 mEq/L (136-145); eGFR For African Americans > 60 (> 60); eGFR For Non-African Americans > 60 (> 60)
[2017-06-05] MEDS: *HR* Heparin 5,000 UNIT/ML VIAL SQ SCH ×2 (06:14→18:04)
[2017-06-05] MEDS: traMADol 50 MG TABLET PO SCH ×2 (06:14→12:40)
[2017-06-05] MEDS: Budesonide/Formoterol 160/4.5 MDI IH SCH ×2 (07:37→19:37)
[2017-06-05] MEDS: Levofloxacin 750 MG/150 ML 750 MG/150 ML BAG IVPB SCH (08:14)
[2017-06-05] MEDS: Insulin LISPRO 300 UNITS/3 ML VIAL SQ SCH ×7 (08:14→21:14)
[2017-06-05] MEDS: Gabapentin 400 MG CAPSULE PO SCH ×2 (08:15→21:16)
[2017-06-05] MEDS: Piperacillin/Tazobactam 3.375 GM in D5% in Water (Mini-Bag+) 100 ML IVPB SCH ×2 (08:16→15:55)
[2017-06-05] MEDS: Furosemide 40 MG/4 ML VIAL IVP SCH ×2 (08:24→15:56)
[2017-06-05] MEDS: Insulin DETEMIR 100 UNIT/ML X5UNITS SQ SCH ×2 (10:08→21:17)
[2017-06-05] MEDS ORDERED: traMADol 50 MG TABLET PO PRN (12:57)
[2017-06-05] MEDS ORDERED: *HR* HYDROcodone/Acet 5/325 mg TABLET PO PRN (12:57)
--- NOTE | 2017-06-05 13:13 | Internal Med Progress Note ---
Date of Encounter: 06/05/17 Time of Encounter: 09:30 - Assessment and plan (1) Bilateral pneumonia Current Visit: Yes Status: Acute Assessment and plan: Continue Vanc, Zosyn, Levaquin. Obtain sputum cultures, legionella/strep ags, and procalcitonin level. Qualifiers: Pneumonia type: due to unspecified organism Lung location: lower lobe of lung Qualified Code(s): J18.9 - Pneumonia, unspecified organism (2) Left leg weakness Current Visit: Yes Status: Acute Assessment and plan: Awaiting physical therapy recs. (3) Acute exacerbation of congestive heart failure Current Visit: Yes Status: Acute Assessment and plan: Echo results showed EF 60%, moderate LVH, atypical septal motion consistent w BBB. Continue diuresis right now. Currently on Lasix 60 mg IV BID (Home dose 60 mg PO BID). Strict I/Os Qualifiers: Congestive heart failure type: systolic Qualified Code(s): I50.23 - Acute on chronic systolic (congestive) heart failure (4) Sepsis Current Visit: Yes Status: Acute Assessment and plan: Urine cultures: NGTD Blood cultures: NGTD clinically improving. Qualifiers: Sepsis type: sepsis due to unspecified organism Qualified Code(s): A41.9 - Sepsis, unspecified organism (5) Coronary artery disease Current Visit: Yes Status: Acute Qualifiers: Coronary Disease-Associated Artery/Lesion type: [place] artery [place] vs. transplanted heart: [place] heart Associated angina: without angina Qualified Code(s): I25.10 - Atherosclerotic heart disease of [place] coronary artery without angina pectoris (6) Thickening of wall of gallbladder Current Visit: Yes Status: Acute Assessment and plan: Though thickening of GBW, was determined to not be acute cholecystitis. Suggests that pneumonia most likely source of sepsis. We will gear treatment more towards pneumonia at this point. (7) Type 2 diabetes mellitus Current Visit: Yes Status: Acute Assessment and plan: Levemir 12 units daily, 5 units humalog with meals, insulin sliding scale. Qualifiers: Diabetes mellitus complication status: without complication Diabetes mellitus senior living insulin use: with senior living use Qualified Code(s): E11.9 - Type 2 diabetes mellitus without complications; Z79.4 - terminal gauger (current) use of insulin; Z79.4 - [facility] (current) use of insulin; Z79.4 - [facility] ( current) use of insulin; Z79.4 - [facility] (current) use of insulin - Subjective Interval history: Reports no complaints. Denies cp/sob, n/v, fevers/chills, diarrhea, palpiations. Legs still feel weak. - Constitutional Vitals: Temp Pulse Resp BP Pulse Ox 98.5 F 64 16 113/63 100 06/05/17 11:00 06/05/17 11:00 06/05/17 11:10 06/05/17 11:00 06/05/17 11:10 General appearance: Present: A&O X 3, morbidly obese, no acute distress - Head Head exam: Present: atraumatic, normocephalic - Respiratory Respiratory exam: Present: decreased breath sounds, rales. Absent: accessory muscle use, chest wall tenderness, prolonged expiratory phase - Cardiovascular Cardiovascular exam: Present: irregular rhythm. Absent: systolic murmur - Expanded Lower Extremities Exam Lower Leg exam: Present: erythema (chronic venous stasis changes bilaterally.), swelling Internal Medicine: Result - Labs CBC & Chem 7: 06/05/17 04:25 06/05/17 04:25 Labs: Short CBC 06/05/17 Range/Units 04:25 WBC 5.8 (4.3-11.1) K/mcL Hgb 11.6 L (12.9-16.9) g/dL Hct 37.0 L (37.5-50.1) % Plt Count 136 L (140-400) K/mcL Neutrophils # 3.8 (1.6-8.9) K/mcL BMP 06/05/17 04:25 Sodium 142 Potassium 3.1 L Chloride 97 L Carbon Dioxide 38 H BUN 23 Creatinine 0.94 Glucose 134 H Calcium 8.6 - ABG Interpretation ABG results: ABG ABG pH 7.37 pH Units (7.32-7.45) 06/02/17 23:52 ABG pCO2 61 mmHg (35-45) H 06/02/17 23:52 ABG pO2 89 mmHg (85-104) 06/02/17 23:52 ABG O2 Saturation 96 % (95-98) 06/02/17 23:52 - Impressions Impressions Echocardiogram 06/04/17 15:38 Impressions: LVEF 60%. Definity echo contrast was used. Moderate concentric left ventricular hypertrophy. Atypical septal motion consistent with bundle branch block. Indeterminate diastolic function. RV is not well visualized in most views but does appear dilated and hypokinetic. Mild tricuspid regurgitation. Moderate aortic stenosis. Lack of significant TR gradient to estimate RVSP. Left Ventricular Wall Motion: Rest Echo Findings All wall segments showed normal motion. Findings: Study Quality * Technically challenging due to body habitus. ECG Findings * Atrial fibrillation with BBB. Left Ventricle * Moderate concentric left ventricular hypertrophy. * Atypical septal motion consistent with bundle branch block. * Indeterminate diastolic function. * LVEF 60%. * Definity echo contrast was used. Aorta * Normally sized aortic root. Aortic Valve * No aortic regurgitation. * Trileaflet aortic valve with possible partial fusion of the [facility]/C. * Moderate aortic stenosis (PV 2.7m/s, MG 17 mmHg, DI 0.28). Mitral Valve * No mitral stenosis. * Mild mitral annular calcification * Mildly thickened mitral valve leaflets. * Trace mitral regurgitation. Tricuspid Valve * Tricuspid valve not well visualized. * Mild tricuspid regurgitation. Pulmonic Valve * Pulmonic valve is not well visualized. * No pulmonic stenosis. * No pulmonic regurgitation. Pulmonary Artery * Pulmonary artery not well visualized. Right Ventricle * Not well visualized in the apical views. Left Atrium * Severely dilated left atrium. Right Atrium * Normal right atrial size. Pericardium * There is no pericardial effusion present. Interatrial Septum * Interatrial septum not well evaluated. IVC * The IVC is not well evaluated. Consult Discharge Plan - Plan [facility]errals: [facility] [Primary Care Provider] -
[2017-06-06] MEDS: Ipratropium/Albuterol Neb 3 ML IH SCH ×6 (03:41→23:31)
[2017-06-06 05:33] LABS: Basophils % 0.5 %; Eosinophils # 0.4 K/mcL (0.0-0.6); Eosinophils % 6.9 %; Hematocrit 37.2 % (37.5-50.1); Hemoglobin 11.5 g/dL (12.9-16.9); Immature Granulocytes % 0.8 % (0-4); Lymphocytes # 1.2 K/mcL (0.6-4.6); Mean Corpuscular HGB Conc 30.9 g/dL (31.6-35.5); Mean Corpuscular Hemoglobin 30.2 pg (28.0-33.3); Mean Corpuscular Volume 97.6 fL (83.0-100.0); Mean Platelet Volume 10.4 fL (9.4-12.4); Monocytes # 0.8 K/mcL (0.0-1.3); Monocytes % 13.5 %; Neutrophils # 3.6 K/mcL (1.6-8.9); Platelet Count 135 K/mcL (140-400); Red Blood Count 3.81 M/mcL (4.19-5.50); Red Cell Distribution Width 14.6 % (11.5-14.5); Segmented Neutrophils % 58.3 %
[2017-06-06 05:47] LABS: BUN/Creatinine Ratio 22 (6-26); Blood Urea Nitrogen 20 mg/dL (8-26); Calcium 8.9 mg/dL (8.6-10.8); Carbon Dioxide 34 mEq/L (19-29); Chloride 99 mEq/L (98-109); Glucose 115 mg/dL (70-99); Osmolality,Calculated 302 (280-300); Sodium 144 mEq/L (136-145); eGFR For African Americans > 60 (> 60); eGFR For Non-African Americans > 60 (> 60)
[2017-06-06] MEDS: *HR* Heparin 5,000 UNIT/ML VIAL SQ SCH ×2 (05:50→17:08)
[2017-06-06 06:04] LABS: Potassium 4.4 mEq/L (3.5-4.5)
[2017-06-06] MEDS: Budesonide/Formoterol 160/4.5 MDI IH SCH ×2 (07:39→19:36)
[2017-06-06] MEDS: Insulin LISPRO 300 UNITS/3 ML VIAL SQ SCH ×7 (08:53→21:22)
[2017-06-06] MEDS: Gabapentin 400 MG CAPSULE PO SCH ×2 (09:02→21:23)
[2017-06-06] MEDS: levoFLOXacin 750 MG TABLET PO SCH (09:03)
[2017-06-06] MEDS: Furosemide 40 MG TABLET PO SCH ×2 (09:03→17:08)
[2017-06-06] MEDS: Insulin DETEMIR 100 UNIT/ML X5UNITS SQ SCH ×2 (09:03→21:23)
--- NOTE | 2017-06-06 15:45 | Internal Med Progress Note ---
Date of Encounter: 06/06/17 Time of Encounter: 09:50 - Assessment and plan (1) Bilateral pneumonia Current Visit: Yes Status: Acute Assessment and plan: Continue levofloxacin. We will complete 14 day antibiotic course. Moderate risk for complications. Awaiting placement to skilled rehabilitation Qualifiers: Pneumonia type: due to unspecified organism Lung location: lower lobe of lung Qualified Code(s): J18.9 - Pneumonia, unspecified organism (2) Acute exacerbation of congestive heart failure Current Visit: Yes Status: Acute Assessment and plan: Patient continues to clinically get better. Having good urine output. Continue Lasix at 60 mg by mouth twice a day. Qualifiers: Congestive heart failure type: systolic Qualified Code(s): I50.23 - Acute on chronic systolic (congestive) heart failure (3) Coronary artery disease Current Visit: Yes Status: Chronic Assessment and plan: No chest pain at this time. Continue home medications including Lipitor, Coreg Qualifiers: Coronary Disease-Associated Artery/Lesion type: [place] artery [place] vs. transplanted heart: [place] heart Associated angina: without angina Qualified Code(s): I25.10 - Atherosclerotic heart disease of [place] coronary artery without angina pectoris (4) Left leg weakness Current Visit: Yes Status: Acute Assessment and plan: And instability. Continue physical therapy (5) Sepsis Current Visit: Yes Status: Resolved Assessment and plan: From pneumonia. Resolving. Qualifiers: Sepsis type: sepsis due to unspecified organism Qualified Code(s): A41.9 - Sepsis, unspecified organism (6) Thickening of wall of gallbladder Current Visit: Yes Status: Acute Assessment and plan: Not acute cholecystitis. Recommend outpatient follow-up with surgery as needed (7) Type 2 diabetes mellitus Current Visit: Yes Status: Chronic Assessment and plan: Well controlled. Continue current insulin regimen Qualifiers: Diabetes mellitus complication status: without complication Diabetes mellitus care home insulin use: with terminal worker use Qualified Code(s): E11.9 - Type 2 diabetes mellitus without complications; Z79.4 - [employer] (current) use of insulin; Z79.4 - [facility] (current) use of insulin; Z79.4 - [employer] continuous [employer] ( current) use of insulin; Z79.4 - [facility] (current) use of insulin - Subjective Interval history: Patient is awake and alert. Working with physical therapy at this time. Feels better overall compared to his symptoms when he initially presented to the hospital. Still feels a bit tired. Requires BiPAP off and on. Continues to have good urine output. - Constitutional Vitals: Temp Pulse Resp BP Pulse Ox 98.7 F 67 16 112/69 92 06/06/17 15:22 06/06/17 15:22 06/06/17 15:22 06/06/17 15:22 06/06/17 15:22 General appearance: Present: A&O X 3, morbidly obese, no acute distress, answers questions appropriately - Respiratory Respiratory exam: Present: prolonged expiratory phase. Absent: accessory muscle use, rales, rhonchi, wheezes - Cardiovascular Cardiovascular exam: Present: RRR, +S1, +S2. Absent: diastolic murmur, gallop, rubs, systolic murmur - GI/Abdominal GI/Abdominal exam: Present: normal bowel sounds, soft, no peritoneal signs. Absent: distended, tenderness - Extremities Exam Extremities exam: Present: pedal edema, warm, radial pulses palpable and symmetrical. Absent: calf tenderness, cyanotic Internal Medicine: Result - Labs CBC & Chem 7: 06/06/17 05:13 06/06/17 05:13 Labs: Short CBC 06/06/17 Range/Units 05:13 WBC 6.2 (4.3-11.1) K/mcL Hgb 11.5 L (12.9-16.9) g/dL Hct 37.2 L (37.5-50.1) % Plt Count 135 L (140-400) K/mcL Neutrophils # 3.6 (1.6-8.9) K/mcL BMP 06/06/17 05:13 Sodium 144 Potassium 4.4 D Chloride 99 Carbon Dioxide 34 H BUN 20 Creatinine 0.93 Glucose 115 H Calcium 8.9 - ABG Interpretation ABG results: ABG ABG pH 7.37 pH Units (7.32-7.45) 06/02/17 23:52 ABG pCO2 61 mmHg (35-45) H 06/02/17 23:52 ABG pO2 89 mmHg (85-104) 06/02/17 23:52 ABG O2 Saturation 96 % (95-98) 06/02/17 23:52 Consult Discharge Plan - Plan [facility]errals: [facility] [Primary Care Provider] -
[2017-06-07] MEDS: Ipratropium/Albuterol Neb 3 ML IH SCH ×3 (03:43→11:19)
[2017-06-07] MEDS: *HR* Heparin 5,000 UNIT/ML VIAL SQ SCH (05:52)
[2017-06-07 05:54] LABS: BUN/Creatinine Ratio 22 (6-26); Blood Urea Nitrogen 18 mg/dL (8-26); Carbon Dioxide 37 mEq/L (19-29); Chloride 97 mEq/L (98-109); Glucose 108 mg/dL (70-99); Osmolality,Calculated 298 (280-300); Potassium 3.9 mEq/L (3.5-4.5); Sodium 143 mEq/L (136-145); eGFR For African Americans > 60 (> 60); eGFR For Non-African Americans > 60 (> 60)
[2017-06-07 06:00] LABS: Basophils % 0.7 %; Eosinophils # 0.3 K/mcL (0.0-0.6); Eosinophils % 4.5 %; Hematocrit 37.3 % (37.5-50.1); Hemoglobin 11.3 g/dL (12.9-16.9); Immature Granulocytes % 0.5 % (0-4); Lymphocytes # 1.2 K/mcL (0.6-4.6); Lymphocytes % 21.2 %; Mean Corpuscular HGB Conc 30.3 g/dL (31.6-35.5); Mean Corpuscular Hemoglobin 29.9 pg (28.0-33.3); Mean Corpuscular Volume 98.7 fL (83.0-100.0); Mean Platelet Volume 10.5 fL (9.4-12.4); Monocytes # 0.7 K/mcL (0.0-1.3); Neutrophils # 3.4 K/mcL (1.6-8.9); Platelet Count 163 K/mcL (140-400); Red Blood Count 3.78 M/mcL (4.19-5.50); Red Cell Distribution Width 14.5 % (11.5-14.5); Segmented Neutrophils % 60.1 %
[2017-06-07] MEDS: levoFLOXacin 750 MG TABLET PO SCH (07:38)
[2017-06-07] MEDS: Insulin LISPRO 300 UNITS/3 ML VIAL SQ SCH ×4 (07:38→11:56)
[2017-06-07] MEDS: Furosemide 40 MG TABLET PO SCH (07:39)
[2017-06-07] MEDS: Gabapentin 400 MG CAPSULE PO SCH (07:39)
[2017-06-07] MEDS: Insulin DETEMIR 100 UNIT/ML X5UNITS SQ SCH (07:44)
[2017-06-07] MEDS: Budesonide/Formoterol 160/4.5 MDI IH SCH (07:56)
--- NOTE | 2017-06-07 08:55 | Discharge Summary ---
Date of Encounter: 06/07/17 Time of Encounter: 08:48 - Discharge Diagnosis (1) Bilateral pneumonia Priority: Primary Status: Acute Qualifiers: Pneumonia type: due to unspecified organism Lung location: lower lobe of lung Qualified Code(s): J18.9 - Pneumonia, unspecified organism (2) Acute exacerbation of congestive heart failure Priority: Secondary Status: Acute Qualifiers: Congestive heart failure type: systolic Qualified Code(s): I50.23 - Acute on chronic systolic (congestive) heart failure (3) Coronary artery disease Priority: Secondary Status: Chronic Qualifiers: Coronary Disease-Associated Artery/Lesion type: [place] artery [place] vs. transplanted heart: [place] heart Associated angina: without angina Qualified Code(s): I25.10 - Atherosclerotic heart disease of [place] coronary artery without angina pectoris (4) Left leg weakness Priority: Secondary Status: Acute (5) Sepsis Priority: Secondary Status: Resolved Qualifiers: Sepsis type: sepsis due to unspecified organism Qualified Code(s): A41.9 - Sepsis, unspecified organism (6) Thickening of wall of gallbladder Priority: Secondary Status: Acute (7) Type 2 diabetes mellitus Priority: Secondary Status: Chronic Qualifiers: Diabetes mellitus complication status: without complication Diabetes mellitus director long term care insulin use: with prison use Qualified Code(s): E11.9 - Type 2 diabetes mellitus without complications; Z79.4 - snf (current) use of insulin; Z79.4 - tank terminal gauger (current) use of insulin; Z79.4 - tank terminal gauger ( current) use of insulin; Z79.4 - snf (current) use of insulin - Discharge Medications Prescriptions: Gabapentin [Neurontin] 800 mg PO BID #30 tablet levoFLOXacin [Levaquin] 750 mg PO Q24H #10 tablet Ropinirole HCl [Requip] 0.5 mg PO HS #30 tablet Tramadol HCl [Ultram] 50 mg PO Q6H #14 tablet Home Medications: Albuterol Neb [Proventil Neb] 2.5 mg IH Q4H 06/02/17 [History] Albuterol Sulfate [Albuterol Inhaler] 2 puff IH Q6H PRN 06/02/17 [History] Alfuzosin HCl [Uroxatral] 10 mg PO DAILY 06/02/17 [History] Allopurinol [Zyloprim 100 MG] 100 mg PO DAILY 06/02/17 [History] Ascorbic Acid [Vitamin C] 500 mg PO DAILY 06/02/17 [History] Atorvastatin Calcium [Lipitor] 20 mg PO HS 06/02/17 [History] Budesonide/Formoterol 160/4.5 [Symbicort 160/4.5] 2 puff IH BIDR 06/02/17 [ History] Calcium Carbonate/Vitamin D3 [Calcium 600-Vit D3 200 Tablet] 1 each PO DAILY [History] Carvedilol 3.125 mg PO BIDWM 06/02/17 [History] Cyanocobalamin (Vitamin B-12) [Vitamin B12] 1,000 mcg PO DAILY 06/02/17 [History ] Ergocalciferol (VITAMIN D2) [Vitamin D] 800 unit PO DAILY 06/02/17 [History] Ferrous Sulfate 325 mg PO TID 06/02/17 [History] FluocinoNIDE 0.05% CRM [Lidex] 1 appl TP BID 06/02/17 [History] Furosemide [Lasix] 60 mg PO BID 06/02/17 [History] Hydrocortisone 1% CREAM [Cortaid] 1 appl TP BID 06/02/17 [History] Insulin NPH Human Isophane [Novolin N] 30 unit SQ QAM 06/02/17 [History] Insulin Regular, Human [Novolin R] 30 unit SQ BID 06/02/17 [History] Ipratropium Neb [Atrovent Neb] 0.5 mg IH QID PRN 06/02/17 [History] Lisinopril 2.5 mg PO Q48H 06/02/17 [History] Omeprazole [PriLOSEC] 20 mg PO BIDAC 06/02/17 [History] Petrolatum,White [Aloe [place]] 1 appl TP DAILY 06/02/17 [History] Pyridoxine (B-6) [Vitamin B-6] 50 mg PO DAILY 06/02/17 [History] Sertraline [Zoloft] 75 mg PO QAM 06/02/17 [History] Spironolactone [Aldactone] 12.5 mg PO BID 06/02/17 [History] Vitamin E Acid Succinate [Vitamin E] 400 units PO DAILY 06/02/17 [History] Gabapentin [Neurontin] 800 mg PO BID #30 tablet 06/07/17 [Rx] Insulin NPH Human Isophane [Novolin N] 30 unit SQ HS #0 06/07/17 [Rx] Potassium Chloride [K-Tab ER] 40 meq PO DAILY #0 06/07/17 [Rx] Ropinirole HCl [Requip] 0.5 mg PO HS #30 tablet 06/07/17 [Rx] Tramadol HCl [Ultram] 50 mg PO Q6H #14 tablet 06/07/17 [Rx] levoFLOXacin [Levaquin] 750 mg PO Q24H #10 tablet 06/07/17 [Rx] Allergies/Adverse Reactions: 3 Allergy/AdvReac Type Severity Reaction Status Date / Time No Known Allergies Allergy Verified 06/02/17 21:35 Procedures/tests Complete & Pending: Procedures Performed prior 72 hours Category Date Time Status EV echocardiogram w enhance Routine Y 06/04/17 15:38 Completed Date of admission: 06/03/17 11:34 [facility] Consults: 06/04/17 15:19 Consult to Physical Therapy [CONS] Routine Comment: Evaluate, develop and implement POC Reason for Consult: Leg weakness, post discharge planning. 06/06/17 07:02 Consult to Occupational Therapy [CONS] Routine Comment: Evaluate, develop and implement POC Reason for Consult: eval for ecf 06/06/17 07:07 Consult to Fruit Sprayer [CONS] Routine Reason for SW Consult: needs ecf Discharging clinician: Oliverio Garrido Anticipated date of discharge: 06/07/17 - Patient Status Disposition: Transfer SNF Condition: Good Functional capacity at discharge: uses cane/walker Overall status at discharge: patient is progressing back to baseline - Discharge Instructions Instructions: Heart Failure (DC), Pneumonia (DC) [facility]: [facility] [Primary Care Provider] - (in 1-2 weeks Patient is from [facility]) - Diet and Activity Activity: as per physical therapy, increase activity as tolerated Diet: diabetic diet, low fat, low cholesterol, low salt diet Hospital course: Mr. Lagos is a 86 year old male patient with a history of atrial fibrillation, congestive heart failure, COPD, coronary artery disease and diabetes was admitted here with acute exacerbation of congestive heart failure along with sepsis possibly from bilateral pneumonia. He was treated with IV antibiotics and also received intravenous Lasix. CT scan of the abdomen and pelvis had shown thickening of the gallbladder and so surgery was consulted. Patient did have mild elevation in his liver enzymes and alkaline phosphatase. Surgery evaluated the patient and did not believe the patient was having acute cholecystitis. Liver enzymes were likely elevated from hepatic congestion related to heart failure. As such, they did not recommend any surgical intervention. Patient's condition has been improving with treatment of heart failure and pneumonia. 2-D echocardiogram showed an EF of 60% with indeterminate diastolic function. His antibiotics have now been de-escalated and he will be discharged on the course of levofloxacin for 10 more days. He was evaluated by physical therapy and recommended placement to skilled rehabilitation. Patient will be discharged to skilled rehabilitation later today. He will continue his home dose of Lasix at 60 mg by mouth twice a day. He will follow up with cardiology through the [facility] for further management of his heart failure. Recent also has been having symptoms of pain in his lower extremities and movements suggestive of restless leg syndrome especially at night. He has been started on Requip to treat this condition. - Time Spent with Patient Total time spent providing and/or coordinating discharge services: Greater than 30 minutes (40 min) - Constitutional Vitals: Temp Pulse Resp BP Pulse Ox 97.8 F 71 17 153/69 95 06/07/17 06:51 06/07/17 06:51 06/07/17 06:51 06/07/17 06:51 06/07/17 06:51 General appearance: Present: A&O X 3, morbidly obese, no acute distress, answers questions appropriately - Neck Neck exam general surgery: Present: supple, trachea midline. Absent: lymphadenopathy - Respiratory Respiratory exam: Present: CTAB. Absent: accessory muscle use, rales, rhonchi, wheezes - Cardiovascular Cardiovascular exam: Present: RRR, +S1, +S2. Absent: diastolic murmur, gallop, rubs, systolic murmur - Neurological Exam Neurological exam: Present: alert, oriented X3, no focal deficits. Absent: facial droop, speech deficit - Skin Skin exam: Present: dry, intact
--- NOTE | 2017-06-07 08:58 | Physician Discharge Referral ---
ExtendedCare Referral Info Provider in Charge after Transfer: PCP Institutional Level of Care: Skilled - Diagnosis (1) Bilateral pneumonia Priority: Primary Status: Acute (2) Acute exacerbation of congestive heart failure Priority: Secondary Status: Acute (3) Coronary artery disease Priority: Secondary Status: Chronic (4) Left leg weakness Priority: Secondary Status: Acute (5) Sepsis Priority: Secondary Status: Resolved (6) Thickening of wall of gallbladder Priority: Secondary Status: Acute (7) Type 2 diabetes mellitus Priority: Secondary Status: Chronic Prognosis: Fair Aware of Diagnosis: Patient Aware of Prognosis: Patient - Transfer Medications Prescriptions: levoFLOXacin [Levaquin] 750 mg PO Q24H #10 tablet Home Medications: Albuterol Neb [Proventil Neb] 2.5 mg IH Q4H 06/02/17 [History] Albuterol Sulfate [Albuterol Inhaler] 2 puff IH Q6H PRN 06/02/17 [History] Alfuzosin HCl [Uroxatral] 10 mg PO DAILY 06/02/17 [History] Allopurinol [Zyloprim 100 MG] 100 mg PO DAILY 06/02/17 [History] Ascorbic Acid [Vitamin C] 500 mg PO DAILY 06/02/17 [History] Atorvastatin Calcium [Lipitor] 20 mg PO HS 06/02/17 [History] Budesonide/Formoterol 160/4.5 [Symbicort 160/4.5] 2 puff IH BIDR 06/02/17 [ History] Calcium Carbonate/Vitamin D3 [Calcium 600-Vit D3 200 Tablet] 1 each PO DAILY [History] Carvedilol 3.125 mg PO BIDWM 06/02/17 [History] Cyanocobalamin (Vitamin B-12) [Vitamin B12] 1,000 mcg PO DAILY 06/02/17 [History ] Ergocalciferol (VITAMIN D2) [Vitamin D] 800 unit PO DAILY 06/02/17 [History] Ferrous Sulfate 325 mg PO TID 06/02/17 [History] FluocinoNIDE 0.05% CRM [Lidex] 1 appl TP BID 06/02/17 [History] Furosemide [Lasix] 60 mg PO BID 06/02/17 [History] Gabapentin [Neurontin] 800 mg PO BID 06/02/17 [History] Hydrocortisone 1% CREAM [Cortaid] 1 appl TP BID 06/02/17 [History] Insulin NPH Human Isophane [Novolin N] 30 unit SQ QAM 06/02/17 [History] Insulin Regular, Human [Novolin R] 30 unit SQ BID 06/02/17 [History] Ipratropium Neb [Atrovent Neb] 0.5 mg IH QID PRN 06/02/17 [History] Lisinopril 2.5 mg PO Q48H 06/02/17 [History] Omeprazole [PriLOSEC] 20 mg PO BIDAC 06/02/17 [History] Petrolatum,White [Aloe [place]] 1 appl TP DAILY 06/02/17 [History] Pyridoxine (B-6) [Vitamin B-6] 50 mg PO DAILY 06/02/17 [History] Sertraline [Zoloft] 75 mg PO QAM 06/02/17 [History] Spironolactone [Aldactone] 12.5 mg PO BID 06/02/17 [History] Tramadol HCl [Ultram] 50 mg PO Q6H 06/02/17 [History] Vitamin E Acid Succinate [Vitamin E] 400 units PO DAILY 06/02/17 [History] Insulin NPH Human Isophane [Novolin N] 30 unit SQ HS #0 06/07/17 [Rx] Potassium Chloride [K-Tab ER] 40 meq PO DAILY #0 06/07/17 [Rx] levoFLOXacin [Levaquin] 750 mg PO Q24H #10 tablet 06/07/17 [Rx] Allergies/Adverse Reactions: 3 Allergy/AdvReac Type Severity Reaction Status Date / Time No Known Allergies Allergy Verified 06/02/17 21:35 - Respiratory Orders Oxygen / L per min (Keep sats >90%), Other (BiPAP 14/7 mm Hg; 8/min) Smoking Cessation: Smoking cessation has been advised. For more information, call the [place] Tobacco Quit Line at 3-703-QFQN-NOW. - Advance Directives Code Status: Full Code - Mobility Orders Ambulate (per PT) - Rehabiliation Orders Rehab Potential: Fair Rehab Orders: Evaluation for Physical Therapy, Evaluation for Occupational Therapy - Diet Orders No Concentrated Sweets (diabetic), Cardiac CERTIFICATION: I certify that the transfer of the above named patient to an Extended Care Facility is necessary for the continuing treatment of the diagnosis listed. The above information is true and accurate reflection of patient's current condition. Confidential - Redisclosure prohibited without a patient's written consent.
[2017-06-07 09:24] LABS: Mycoplasma pneumoniae IgG 0.18 U/L (<=0.09); Procalcitonin 0.3 ng/mL (<=0.10)
[2017-06-07 11:21] VITALS: BP 152/67
== END 2017-06-07 15:19 | DRG 871 ==
LOC: 2ANU 21:32 → EMEROO 21:32 → 2ANU 06-03 03:39 → SUATTDRO 06-03 11:34
PROVIDERS: ADMIT Internal Medicine; ATTEND Internal Medicine